=== PATIENT | male | born 1955 | race Caucasian/White ===

== ENCOUNTER → 2017-02-24 | Day surgery (SDC) | payer OTHER ==
[2017-02-23 17:19] VITALS: Ht 182.9 cm; Wt 100.0 kg
[~2017-02-24] VITALS: Ht 182.9 cm; Wt 100.0 kg
[~2017-02-24] MED LIST: ACETAMINOPHEN 325 MG TAB PO PRN; AMPH10TA2 PO; AMPH12.5 PO; ANDG TOP; ASPEC81 PO; ATROPINE SULFATE 0.1 MG/ML 5ML SYR IV PRN; BACITRACIN 50000 UNIT VIAL ONE; BUPIVACAINE/EPINEPHRINE 0.5% MPF 1:200,000 30 ML VIAL ONE; CEFAZOLIN 1000MG/55 ML D5W IV SCH; CHOL1000 PO; CHOL45CA2 PO; DEXAMETHASONE SOD INJ 4 MG/ML VIAL ONE; ESMOLOL HCL 10 MG/ML 10 ML VIAL ONE; EpHEDrine SULFATE INJ 50 MG/ML AMP IV PRN; FENTANYL CITRATE INJ 50 MCG/1 ML 2 ML VIAL IV PRN; FENTANYL CITRATE INJ 50 MCG/1 ML 2 ML VIAL ONE; FLUMAZENIL 0.1 MG/1 ML 10 ML VIAL IV PRN; GLYCOPYRROLATE INJ 0.2 MG/ML VIAL ONE; HYDROmorphone INJ 1 MG/ML SYR IV PRN; HYDROmorphone INJ 2 MG/ML SYR/VIAL IV PRN; HYDROmorphone INJ 2 MG/ML SYR/VIAL ONE; KETOROLAC TROMETHAMINE 30 MG/ML VIAL IV. PRN; KETOROLAC TROMETHAMINE 30 MG/ML VIAL ONE; LABETALOL HCL IV 5 MG/ML 20ML IV PRN; LACTATED RINGER'S 1000ML 1,000 ML IV SCH; LIDOCAINE HCL 2% 2 ML VIAL (20MG/ML) ONE; LISI-729 PO; MEPERIDINE HCL 25 MG/ML CARP IV PRN; MIDAZOLAM HCL 1 MG/ML 2ML VIAL ONE; NALOXONE HCL 0.4 MG/1 ML VIAL/CARP IV PRN; NEOSTIGMINE METHYLSULFATE 1 MG/ML 10ML VIAL ONE; OMEG10007 PO; ONDANSETRON INJ 2 MG/ML 2 ML VIAL IV PRN; ONDANSETRON INJ 2 MG/ML 2 ML VIAL ONE; OXYC-57 PO; OXYC15TA89 PO; OXYCODONE HCL IR 5 MG TAB (IMMEDIATE RELEASE) PO PRN; PHENYLEPHRINE 100MCG/ML 5ML SYR IV PRN; PROPOFOL IV EMULSION 10 MG/ML 20 ML VIAL IV ONE; QUET1TAB34 PO; ROCURONIUM BROMIDE 10 MG/ML 5 ML VIAL ONE; SERT50TA PO; SIMV40TA2 PO; SYN200 PO
[2017-02-24 08:50] VITALS: BP 139/75; PULSE 59; TEMP 37.1; O2SAT 95
--- NOTE | 2017-02-24 09:51 | History & Physical Bridge Note ---
H&P Re-Evaluation Bridge Note: I have examined the patient, reviewed the History & Physical and in the interval since the performance of the History & Physical I have noted the following changes of clinical significance: No changes noted
--- NOTE | 2017-02-24 09:52 | History and Physical ---
History & Physical Date February 24, 2017. Chief Complaint chronic back and leg pain History of Present Illness The patient is a 61 year old male with complaints of Past Medical/Surgical History Medical Problems: (1) Amnesia (2) No pertinent past medical history Additional History Hepatic Disease: No Endocrine Disorder: No Kidney Disease: No Hypertension: No Heart Disease: No Bleeding Tendencies: No Infectious Diseases: No Allergies Coded Allergies: Penicillins (Verified Allergy, Intermediate, HIVES, 02/24/17) Home Medications Scheduled Amphetamine-Dextroamphetamine (Adderall), 20 MG PO DAILY Amphetamine-Dextroamphetamine 10MG (Adderall 10MG), 1 TAB PO DAILY Aspirin (Aspirin EC Low Dose), 1 TABS PO DAILY Cholecalciferol (Vitamin D3), 1,000 INTER.UNIT PO DAILY Choline Fenofibrate (Trilipix), 45 MG PO QPM Levothyroxine Sodium (Synthroid), 200 MCG PO QPM Lisinopril (Zestril), 5 MG PO QPM Oxycodone Hcl (Oxycontin), 30 MG PO Q12 Quetiapine Fumarate (Seroquel), 100 MG PO HS Sertraline (Zoloft), 50 MG PO QPM Simvastatin (Zocor), 40 MG PO QPM Testosterone (Androgel), 1 PKT TOP DAILY Physical Examination Skin: warm/dry, no rash Eyes: normal inspection, EOMI, sclerae normal ENT: normal ENT inspection, pharynx normal Head: normocephalic, atraumatic Neck: supple, no adenopathy, trachea midline Respiratory/Chest: lungs clear, normal breath sounds, no respiratory distress Cardiovascular: regular rate, rhythm, no edema, no murmur Abdomen / GI: normal bowel sounds, non tender Back: normal inspection Extremities: normal inspection, normal range of motion Neurologic/Psych: no motor/sensory deficits, alert, normal reflexes, oriented x 3 Diagnosis chronic back and leg pain scs battery failure Plan of Treatment replacement of scs battery
--- NOTE | 2017-02-24 11:04 | [facility] Post Operative Brief Note ---
Immediate Operative Summary Operative Date February 24, 2017. Pre-Operative Diagnosis Chronic back and leg pain, spinal cord stimulator battery failure Post-Operative Diagnosis Chronic back and leg pain, spinal cord stimulator battery failure Procedure(s) Performed Spine Battery Replacement Surgeon Dr. Ferdinand Guajardo Compliance Counsel Surgeon(s) Nae Castro PA-C Estimated Blood Loss 5 Findings none Specimens A. explanted hardware
--- NOTE | 2017-02-24 11:08 | Discharge Instructions ---
Discharge Instructions Date of Service February 24, 2017. Admission Reason for Admission: Post Laminectomy Syndrome Discharge Discharge Diagnosis / Problem: back pain Discharge Goals Goal(s): Improve function Activity Recommendations Activity Limitations: per Instructions/Follow-up section Lifting Limitations: no more than 10 pounds Exercise/Sports Limitations: gradually increase as tolerated May Resume Sexual Activity: when tolerated Shower/Bathe: may shower/bathe in 3 days . Instructions / Follow-Up Instructions / Follow-Up f/u 2 weeks Current Hospital Diet Patient's current hospital diet: Discharge Diet Recommended Diet: Regular Diet Procedures Procedures Performed: Spine Battery Replacement Pending Studies Studies pending at discharge: no Medical Emergencies . Who to Call and When: Medical Emergencies: If at any time you feel your situation is an emergency, please call 911 immediately. . Non-Emergent Contact Non-Emergency issues call your: Primary Care Provider . "Provider Documentation" section prepared by Ferdinand Guajardo. . VTE Core Measure Inpt VTE Proph given/why not?: Jenae Correa, FRANCISCO J's
--- NOTE | 2017-02-24 12:03 | Anesthesiology Progress Note ---
Anesthesia Post Op Note Date & Time February 24, 2017 at 12:03 Vital Signs Pain Intensity: 0 Vital Signs Past 12 Hours Date Time Temp Pulse Resp B/P Pulse Ox O2 Delivery O2 Flow Rate FiO2 02/24/17 12:00 36.6 69 16 117/70 97 Room Air 02/24/17 11:50 36.6 73 16 122/67 95 Room Air 02/24/17 11:40 74 16 129/71 100 Mask 10 02/24/17 11:30 80 16 118/72 100 Mask 10 02/24/17 11:22 36.6 91 16 159/82 100 Mask 10 02/24/17 08:50 37.1 59 18 139/75 95 Room Air Notes Mental Status: alert / awake / arousable, participated in evaluation Pt Amnestic to Procedure: Yes Nausea / Vomiting: adequately controlled Pain: adequately controlled Airway Patency, RR, SpO2: stable & adequate BP & HR: stable & adequate Hydration State: stable & adequate Anesthetic Complications: no major complications apparent
[2017-02-24 12:10] VITALS: BP 114/68; PULSE 80; TEMP 36.9; O2SAT 97
[2017-02-24 12:40] VITALS: BP 121/77; PULSE 66; TEMP 36.6; O2SAT 96
--- NOTE | 2017-02-24 12:46 | OPERATIVE REPORT ---
DATE OF OPERATION: 02/24/2017 PREOPERATIVE DIAGNOSIS: Chronic persistent back and bilateral leg pain. POSTOPERATIVE DIAGNOSIS: Same. PROCEDURE PERFORMED: Battery change for spinal cord stimulator. SURGEON: Dr. Ferdinand Guajardo. CATTLE KILLER: Due to the complex nature of the procedure, the entire surgery was performed with the acute care nursing assistant of BRITANY Miles. The congressional assistant, under direct supervision, was involved in the actual performance of all aspects of the surgical procedure including hemostasis, tissue retraction and incision, instrument management, patient positioning, and wound closure. ANESTHESIA: General. DISPOSITION: The patient awakened and taken to PACU in stable condition. HISTORY OF PATIENT'S PROBLEMS: This is a 61-year-old male well known to me that presents with the above-mentioned diagnosis. After noting a decline in battery function, elected to undergo the above-mentioned procedure. Risks, benefits, pros, cons, and alternatives were outlined in detail preoperatively. DESCRIPTION OF PROCEDURE: The patient was met with preoperatively. The case was discussed and all questions were addressed. At that point the patient was taken back to operative suite and after undergoing successful general endotracheal intubation via the department of anesthesia was placed in prone position on top of the Marcio frame. All bony prominences were well padded and the eyes were inspected to ensure there was no external pressure placed upon them. At this point, the thoracolumbar spine was prepped and draped in normal sterile fashion. We then utilized a previous incision site of her left flank for the battery pocket resided with sharp dissection performed down to and exposing the battery pocket. The battery was removed without difficulty, detached a new battery attached, tested to ensure it was working appropriately and placed in existing pocket and closed with 1-0 Vicryl in the fascia, 2-0 Vicryl subcutaneously, 4-0 Monocryl for final skin closure. Steri-Strips and sterile dressing placed. The patient was awakened and taken to PACU in stable condition. I attest to the content of the Intraoperative Record and any orders documented therein. Any exceptio ns are noted below.
[2017-02-24 12:56] VITALS: BP 120/77; PULSE 68; TEMP 36.7; O2SAT 96
== END | disposition home or self-care (01) ==
LOC: C.ACU 08:21
PROVIDERS: ATTEND Orthopaedic Surgery Orthopaedic Surgery of the Spine
DX: M54.9 Dorsalgia, unspecified (principal); M79.604 Pain in right leg; M79.605 Pain in left leg; G89.29 Other chronic pain; I10 Essential (primary) hypertension; F32.9 Major depressive disorder, single episode, unspecified; F90.0 Attention-deficit hyperactivity disorder, predominantly inattentive type; Z88.0 Allergy status to penicillin; Z79.82 Long term (current) use of aspirin; Z79.899 Other long term (current) drug therapy; Z90.89 Acquired absence of other organs